=== PATIENT | female | born 1990 | race Two or more races ===

== ENCOUNTER 2023-12-31 19:14 | Emergency (ER) | payer BC ==
[~2023-12-31] VITALS: Ht 167.6 cm; Wt 85.9 kg
[2023-12-31 19:39] LABS: Urine Bacteria NONE SEEN /hpf (None Seen); Urine Blood TRACE /uL (Negative); Urine Clarity Clear (Clear); Urine Color Colorless (Yellow); Urine Protein, UAD Negative (Negative); Urine Specific Gravity 1.014 (1.001-1.035); Urine Urobilinogen Normal (Negative); Urine WBC 3 /hpf (0 - 5); Urine pH 7.5 (5.0-8.0)
[2023-12-31 20:00] LABS: Basophils # (auto) 0 10 ^3/uL (0-0.2); Basophils % (auto) 0.3 % (0.0-2.0); Eosinophils # (auto) 0.1 10 ^3/uL (0-0.8); Eosinophils % (auto) 0.5 % (0.0-7.0); Hematocrit 39.5 % (36.0-46.0); Hemoglobin 13.2 g/dL (12.2-16.2); Lymphocytes # (auto) 2.2 10 ^3/uL (0.4-5.4); Lymphocytes % (auto) 13.7 % (10.0-50.0); Mean Corpuscular Hemoglobin 30.3 pg (28.0-32.0); Mean Corpuscular Hgb Conc. 33.5 g/dL (32.0-36.0); Mean Corpuscular Volume 90.5 fL (80.0-100.0); Monocytes % (auto) 6.2 % (0.0-12.0); Neutrophils # (auto) 12.5 10 ^3/uL (1.6-8.6); Neutrophils % (auto) 79.3 % (37.0-80.0); Red Blood Cells 4.36 10^6/uL (4.0-5.20); Red Cell Distribution Width 12.8 % (11.8-14.3); White Blood Cell 15.8 10^3/uL (4.4-10.8)
[2023-12-31 20:09] LABS: Chloride 103 mmol/L (98-107); Potassium 3.7 mmol/L (3.5-5.1); Sodium 136 mmol/L (136-145)
[2023-12-31 20:10] LABS: Anion Gap 7 (5-15); Carbon Dioxide 26 mmol/L (20-30)
[2023-12-31 20:11] LABS: Calcium 9.1 mg/dL (8.7-10.4)
[2023-12-31 20:16] LABS: BUN/Creatinine Ratio 13.6 (10.0-20.0); Blood Urea Nitrogen 8 mg/dL (9-23); Glucose 91 mg/dL (74-106)
[2023-12-31] MEDS ORDERED: IOHEXOL 300 MG/ML 100ML BOTTLE IJ ONE (20:56)
[2023-12-31] MEDS: KETOROLAC TROMETH 30 MG/ML 1ML VIAL IV ONE (21:57)
[2023-12-31] MEDS: ONDANSETRON HCL 4 MG/2 ML VIAL IV ONE (21:57)
[2023-12-31] MEDS: SODIUM CHLORIDE 0.9% 1,000 ML IVB ONE (22:25)
[2024-01-01] MEDS ORDERED: ACET-6 PO (04:31)
[2024-01-01] MEDS ORDERED: CEPH250C PO (04:31)
[2024-01-01] MEDS ORDERED: NAPR1TAB24 PO (04:31)
[2024-01-01 04:52] VITALS: BP 99/69; PULSE 74; RESP 18; TEMP 97.8; O2SAT 97
[2024-01-01] MEDS: CEPHALEXIN 250 MG CAP PO ONE (04:55)
== END 2024-01-01 04:54 | disposition home or self-care (01) ==
LOC: ER 19:14
DX: N83.201 Unspecified ovarian cyst, right side (principal); N39.0 Urinary tract infection, site not specified; Z79.899 Other long term (current) drug therapy
CPT/HCPCS: 36415; 74177; 76830; 76856; 80048; 81001; 81025; 85025; 96361; 96374; 96375; 99285; J1885; J2405; J7030; Q9967

== ENCOUNTER → 2024-03-30 | Outpatient (CLI) | payer BC ==
[~2024-03-30] MED LIST: ACET-6 PO; CEPH250C PO; NAPR1TAB24 PO
[2024-03-30 08:59] LABS: Urine Bacteria None Seen /hpf (None Seen)
[2024-03-30 09:11] LABS: Basophils # (auto) 0 10 ^3/uL (0-0.2); Basophils % (auto) 0.6 % (0.0-2.0); Eosinophils # (auto) 0.1 10 ^3/uL (0-0.8); Eosinophils % (auto) 1.1 % (0.0-7.0); Hematocrit 41.8 % (36.0-46.0); Hemoglobin 13.8 g/dL (12.2-16.2); Lymphocytes # (auto) 2.3 10 ^3/uL (0.4-5.4); Lymphocytes % (auto) 31.2 % (10.0-50.0); Monocytes # (auto) 0.5 10 ^3/uL (0-1.3); Monocytes % (auto) 6.8 % (0.0-12.0); Neutrophils # (auto) 4.5 10 ^3/uL (1.6-8.6); Neutrophils % (auto) 60.3 % (37.0-80.0); Red Cell Distribution Width 13.6 % (11.8-14.3); White Blood Cell 7.5 10^3/uL (4.4-10.8)
[2024-03-30 09:33] LABS: Urine Blood Negative /uL (Negative); Urine Clarity Turbid (Clear); Urine Color Yellow (Yellow); Urine Protein, UAD TRACE (Negative); Urine Specific Gravity 1.025 (1.001-1.035); Urine Urobilinogen 2 mg/dL (Negative); Urine WBC 5 /hpf (0 - 5); Urine pH 7.5 (5.0-9.0)
[2024-03-30 09:45] LABS: Alanine Aminotransferase 15 U/L (7-40); Alkaline Phosphatase 64 U/L (46-116); Anion Gap 4 (5-15); BUN/Creatinine Ratio 14.5 (10.0-20.0); Blood Urea Nitrogen 9 mg/dL (9-23); Calcium 9.1 mg/dL (8.5-10.1); Carbon Dioxide 27 mmol/L (20-30); Chloride 106 mmol/L (98-107); Glucose 90 mg/dL (74-106); Potassium 4.1 mmol/L (3.5-5.1); Sodium 137 mmol/L (136-145); Triglycerides 116 mg/dL (< 150)
[2024-03-30 09:46] LABS: LDL Cholesterol 121 mg/dL (< 100)
[2024-03-30 09:47] LABS: Albumin 4.4 g/dL (3.2-4.8); Aspartate Aminotransferase 12 U/L (13-40); Cholesterol 181 mg/dL (< 200); HDL Cholesterol 43 mg/dL (40-59)
[2024-03-30 09:48] LABS: Bilirubin, Total 0.5 mg/dL (0.2-1.0); Total Protein 7.1 g/dL (5.7-8.2)
[2024-03-30 10:19] LABS: Thyroid Stimulating Hormone 1.23 uIU/mL (0.358-3.74)
[2024-03-30 10:26] LABS: Beta HCG, Quantitative 23407.9 mIU/mL (1.5-4.2)
[2024-04-01 13:06] LABS: RPR Non Reactive (Non Reactive)
[2024-04-02 10:00] LABS: Hepatitis B Core Total AB Negative (Negative)
[2024-04-02 13:38] LABS: Hepatitis A Total Antibody Negative (Negative); Hepatitis B Surface Antibody Negative (Negative); Hepatitis B Surface Antigen Negative (Negative); Hepatitis C Antibody Negative (Negative)
== END | disposition home or self-care (01) ==
LOC: LAB 08:44
PROVIDERS: ATTEND Student in an Organized Health Care Education/Training Program
DX: Z32.01 Encounter for pregnancy test, result positive (principal); E55.9 Vitamin D deficiency, unspecified
CPT/HCPCS: 36415; 80053; 80061; 81001; 81025; 82306; 83036; 84443; 84702; 85025; 86592; 86703; 86704; 86706; 86708; 86803; 87340

== ENCOUNTER → 2024-05-02 | Outpatient (CLI) | payer BC ==
[2024-05-02 14:17] LABS: Basophils # (auto) 0.1 10 ^3/uL (0-0.2); Basophils % (auto) 0.5 % (0.0-2.0); Eosinophils # (auto) 0.1 10 ^3/uL (0-0.8); Eosinophils % (auto) 1.2 % (0.0-7.0); Hematocrit 39.9 % (36.0-46.0); Hemoglobin 13.7 g/dL (12.2-16.2); Lymphocytes # (auto) 2.3 10 ^3/uL (0.4-5.4); Lymphocytes % (auto) 23.2 % (10.0-50.0); Mean Corpuscular Hemoglobin 30.7 pg (28.0-32.0); Mean Corpuscular Hgb Conc. 34.3 g/dL (32.0-36.0); Mean Corpuscular Volume 89.6 fL (80.0-100.0); Monocytes # (auto) 0.7 10 ^3/uL (0-1.3); Monocytes % (auto) 6.9 % (0.0-12.0); Neutrophils # (auto) 6.9 10 ^3/uL (1.6-8.6); Neutrophils % (auto) 68.2 % (37.0-80.0); Red Blood Cells 4.46 10^6/uL (4.0-5.20); Red Cell Distribution Width 13.8 % (11.8-14.3); White Blood Cell 10.1 10^3/uL (4.4-10.8)
[2024-05-02 14:27] LABS: Amphetamine Screen, Urine Neg (NEGATIVE); Barbiturate Scree,Urine Neg (NEGATIVE); Benzodiazephine Screen, Urine Neg (NEGATIVE); Cocaine Screen, Urine Neg (NEGATIVE); Opiate Scree,Urine Neg (NEGATIVE); Phencyclidine Screen, Urine Neg (NEGATIVE)
[2024-05-02 14:28] LABS: Cannabinoid Screen, Urine Neg (NEGATIVE)
[2024-05-03 08:06] LABS: RPR Non Reactive (Non Reactive)
[2024-05-03 19:06] LABS: Chlamydia Trachomatis, NAA Negative (Negative); Neisseria gonorrhoeae, NAA Negative (Negative)
[2024-05-04 21:06] LABS: QuantiFERON-TB Gold Plus Negative (Negative)
== END | disposition home or self-care (01) ==
LOC: LAB 13:40
PROVIDERS: ATTEND Obstetrics & Gynecology
DX: Z34.80 Encounter for supervision of other normal pregnancy, unspecified trimester (principal); Z3A.00 Weeks of gestation of pregnancy not specified
CPT/HCPCS: 36415; 80307; 83036; 84144; 84702; 85025; 86592; 86703; 86762; 86850; 86900; 86901; 87086; 87340

== ENCOUNTER → 2024-08-28 | Outpatient (CLI) | payer BC ==
[2024-08-28 08:26] LABS: Basophils # (auto) 0 10 ^3/uL (0-0.2); Basophils % (auto) 0.5 % (0.0-2.0); Eosinophils # (auto) 0.1 10 ^3/uL (0-0.8); Eosinophils % (auto) 1.2 % (0.0-7.0); Hematocrit 36.1 % (36.0-46.0); Hemoglobin 12.7 g/dL (12.2-16.2); Lymphocytes # (auto) 1.4 10 ^3/uL (0.4-5.4); Lymphocytes % (auto) 19.2 % (10.0-50.0); Mean Corpuscular Hemoglobin 31.8 pg (28.0-32.0); Mean Corpuscular Hgb Conc. 35.1 g/dL (32.0-36.0); Mean Corpuscular Volume 90.7 fL (80.0-100.0); Monocytes # (auto) 0.5 10 ^3/uL (0-1.3); Monocytes % (auto) 7.1 % (0.0-12.0); Neutrophils # (auto) 5.1 10 ^3/uL (1.6-8.6); Nucleated Red Blood Cells % 0.1 %; Platelet Count (auto) 254 10^3/uL (140-450); Red Blood Cells 3.98 10^6/uL (4.0-5.20); Red Cell Distribution Width 13.5 % (11.8-14.3); White Blood Cell 7.2 10^3/uL (4.4-10.8)
== END | disposition home or self-care (01) ==
LOC: LAB 08:02
PROVIDERS: ATTEND Obstetrics & Gynecology
DX: Z34.80 Encounter for supervision of other normal pregnancy, unspecified trimester (principal)
CPT/HCPCS: 36415; 82951; 83036; 85025

== ENCOUNTER → 2024-10-17 | Outpatient (CLI) | payer BC ==
[2024-10-17 11:59] LABS: Basophils # (auto) 0 10 ^3/uL (0-0.2); Basophils % (auto) 0.4 % (0.0-2.0); Eosinophils # (auto) 0.1 10 ^3/uL (0-0.8); Eosinophils % (auto) 1.7 % (0.0-7.0); Hematocrit 34.8 % (36.0-46.0); Hemoglobin 11.7 g/dL (12.2-16.2); Lymphocytes # (auto) 1.7 10 ^3/uL (0.4-5.4); Lymphocytes % (auto) 18.9 % (10.0-50.0); Mean Corpuscular Hemoglobin 29.1 pg (28.0-32.0); Mean Corpuscular Hgb Conc. 33.7 g/dL (32.0-36.0); Mean Corpuscular Volume 86.3 fL (80.0-100.0); Monocytes # (auto) 0.8 10 ^3/uL (0-1.3); Monocytes % (auto) 8.7 % (0.0-12.0); Neutrophils # (auto) 6.3 10 ^3/uL (1.6-8.6); Neutrophils % (auto) 70.3 % (37.0-80.0); Platelet Count (auto) 276 10^3/uL (140-450); Red Blood Cells 4.03 10^6/uL (4.0-5.20); Red Cell Distribution Width 14.1 % (11.8-14.3); White Blood Cell 8.9 10^3/uL (4.4-10.8)
[2024-10-18 08:06] LABS: RPR Non Reactive (Non Reactive)
[2024-10-18 18:06] LABS: Chlamydia Trachomatis, NAA Negative (Negative); Neisseria gonorrhoeae, NAA Negative (Negative)
== END | disposition home or self-care (01) ==
LOC: LAB 11:26
PROVIDERS: ATTEND Obstetrics & Gynecology
DX: Z34.80 Encounter for supervision of other normal pregnancy, unspecified trimester (principal)
CPT/HCPCS: 36415; 85025; 86592

== ENCOUNTER 2024-11-17 09:00 | Observation (INO) | payer BC, MEDICAID ==
[~2024-11-17] VITALS: Ht 167.6 cm; Wt 98.9 kg
[2024-11-17] MEDS ORDERED: LIDOCAINE 2%HCL (LOCAL ANESTH.) INJ 20ML MDV IJ PRN (09:15)
[2024-11-17] MEDS ORDERED: BUTORPHANOL TARTRATE 2 MG/1 ML VIAL IV PRN ×2 (09:15)
[2024-11-17 10:01] LABS: Basophils # (auto) 0 10 ^3/uL (0-0.2); Basophils % (auto) 0.3 % (0.0-2.0); Eosinophils # (auto) 0.1 10 ^3/uL (0-0.8); Hematocrit 37.2 % (36.0-46.0); Hemoglobin 12.5 g/dL (12.2-16.2); Lymphocytes # (auto) 1.5 10 ^3/uL (0.4-5.4); Lymphocytes % (auto) 20.1 % (10.0-50.0); Mean Corpuscular Hemoglobin 28.8 pg (28.0-32.0); Mean Corpuscular Hgb Conc. 33.5 g/dL (32.0-36.0); Mean Corpuscular Volume 85.7 fL (80.0-100.0); Monocytes # (auto) 0.5 10 ^3/uL (0-1.3); Neutrophils # (auto) 5.3 10 ^3/uL (1.6-8.6); Neutrophils % (auto) 71.6 % (37.0-80.0); Platelet Count (auto) 246 10^3/uL (140-450); Red Blood Cells 4.34 10^6/uL (4.0-5.20); Red Cell Distribution Width 15.4 % (11.8-14.3); White Blood Cell 7.4 10^3/uL (4.4-10.8)
[2024-11-17 10:11] LABS: Urine Bacteria None Seen /hpf (None Seen)
[2024-11-17 10:21] LABS: INR 0.99 (0.9-1.15); Partial Thromboplastin Time 26.7 SEC (24.5-34.5); Prothrombin Time 10.5 sec (9.3-11.8)
[2024-11-17] MEDS: ceFAZolin 1GM/50ML 50 ML IV SCH (10:23)
[2024-11-17 10:31] LABS: Alanine Aminotransferase 12 U/L (7-40); Anion Gap 9 (5-15); Aspartate Aminotransferase 13 U/L (13-40); BUN/Creatinine Ratio 10.4 (10.0-20.0); Calcium 9.1 mg/dL (8.7-10.4); Carbon Dioxide 21 mmol/L (20-31); Chloride 106 mmol/L (98-107); Glucose 81 mg/dL (74-106); Potassium 3.9 mmol/L (3.5-5.1)
[2024-11-17] MEDS: miSOPROStol 50 MCG per PRE-CUT 1/2 TAB PO PRN (10:31)
[2024-11-17 10:32] LABS: Bilirubin, Total 0.4 mg/dL (0.2-1.0)
[2024-11-17] MEDS: PHISODERM TOP SOLN 240ML BTL TOP PRN (10:45)
[2024-11-17] MEDS: DERMOPLAST 60ML BOTTLE TOP PRN (10:45)
[2024-11-17] MEDS: WITCH HAZEL-GLYCERIN PAD TOP PRN (10:45)
[2024-11-17 10:55] LABS: Urine Blood Negative /uL (Negative); Urine Clarity Clear (Clear); Urine Color Light-Yellow (Yellow); Urine Protein, UAD Negative (Negative); Urine Squamous Epithelial Cell FEW /hpf (<5); Urine Urobilinogen Normal (Negative); Urine WBC 12 /hpf (0 - 5); Urine pH 7.5 (5.0-9.0)
[2024-11-17 10:58] LABS: Alkaline Phosphatase 231 U/L (46-116); Blood Urea Nitrogen 5 mg/dL (9-23); Sodium 136 mmol/L (136-145)
[2024-11-17 10:59] LABS: Amphetamine Screen, Urine Neg (NEGATIVE); Barbiturate Scree,Urine Neg (NEGATIVE); Benzodiazephine Screen, Urine Neg (NEGATIVE); Cannabinoid Screen, Urine Neg (NEGATIVE); Cocaine Screen, Urine Neg (NEGATIVE); Opiate Scree,Urine Neg (NEGATIVE); Phencyclidine Screen, Urine Neg (NEGATIVE)
[2024-11-17] MEDS: LACTATED RINGER'S 1,000 ML IV SCH (13:26)
--- NOTE | 2024-11-17 13:33 | DVHHP ---
ADMIT DATE: 11/17/2024 CHIEF COMPLAINT: Rupture of membrane. HISTORY OF PRESENT ILLNESS: The patient is a 34-year-old 4, para 3 with EDC 11/21. Estimated gestational age of 39+ weeks, admitted for spontaneous rupture of membrane, clear fluid. The patient has no vaginal bleeding. PAST MEDICAL HISTORY: None. PAST SURGICAL HISTORY: None. SOCIAL HISTORY: None. FAMILY HISTORY: None. OBSTETRIC AND GYNECOLOGIC HISTORY: Three normal vaginal deliveries. GBS negative. REVIEW OF SYSTEMS: Consistent with HPI. PHYSICAL EXAMINATION: VITAL SIGNS: Stable, afebrile. HEENT: Within normal limits. CARDIOVASCULAR: Regular rate and rhythm. LUNGS: Clear to auscultation. BREASTS: Symmetrical. No masses. ABDOMEN: Gravid. Positive heart. PELVIC: 1 cm, 50%, -3. EXTREMITIES: No clubbing, cyanosis or edema. IMPRESSION: * Intrauterine at 39+ weeks with spontaneous rupture of membrane. * Advanced maternal age. PLAN: Augmentation of labor, antibiotic. Expectant vaginal delivery. Informed consent obtained. DO NICKO Dawson/ROSENDO TID: [id number] RECEIPT: [id number]
[2024-11-17] MEDS ORDERED: METHYLERGONOVINE MALEATE 0.2 MG/ML AMP IM ONE (16:50)
[2024-11-17] MEDS: LACT. RINGERS/OXYTOCIN 20UNITS 500 ML IV ONE ×2 (17:01→17:16)
[2024-11-17] MEDS: METHYLERGONOVINE MALEATE 0.2 MG/ML AMP IM ONE (17:25)
--- NOTE | 2024-11-17 17:25 | LDN2 ---
Labor and Delivery Note Date 11/17/24 Age 34 4 Para 4 EDC 1-8 EGA 39WKS Diagnosis LABOR,SROM,AMA Vaginal Delivery: VTX Vacuum Assisted: No Placenta: Spontaneous Sex: Female Apgars 8-9 Nuchal Cord Transected: No Amniotic Fluid: Clear Anesthesia NA Episiotomy: No Extension: Yes (1ST DEG PERINEAL LAC) Repaired with 2-0 CHROMIC EBL 300ML Labs Laboratory Tests 11/17/24 09:38: Hepatitis B Surface Antigen Negative, HIV (1&2) Antibody Negative 05/02/24 13:50: Rubella Antibody Positive Blood Bank 11/17/24 09:38: Blood Type O POSITIVE Complications NONE Conditions STABLE Comments/Significant Med Anh SPEC EXAM NO CXAL LAC INES ALBARRAN DO Nov 17, 2024 17:25
[2024-11-17] MEDS ORDERED: ACETAMINOPHEN 325 MG TAB PO PRN (19:30)
[2024-11-17] MEDS: IBUPROFEN 600 MG TAB PO PRN (20:31)
[2024-11-17 22:34] VITALS: BP 111/73; PULSE 84; RESP 19; TEMP 98.5; O2SAT 97
[2024-11-18 03:00] VITALS: BP 94/53; PULSE 78; RESP 16; TEMP 98.1; O2SAT 96
--- NOTE | 2024-11-18 04:05 | DVHPN2 ---
Progress Note Date Seen: Nov 18, 2024 Subjective S: Lochia minimal, Tolerating regular diet well. Ambulating and voiding well w/o feeling lightheaded or dizzy. Passing flatus but no BM yet. Breast feeding. Contraceptive plan: Male Condoms pending vasectomy Desires and requests to be discharged home today vital signs Vital Sign Date Time Temp Pulse Resp B/P (MAP) Pulse Ox O2 Delivery O2 Flow Rate FiO2 11/17/24 22:34 98.5 84 19 111/73 (86) 97 98.5 11/17/24 20:00 Room Air Total Intake and Output 11/17/24 11/17/24 11/18/24 15:00 23:00 07:00 Output Total 700 ml 400 ml Balance -700 ml -400 ml medications Current Medications Medications Dose Ordered Sig/Ra Route Start Time Stop Time Status Last Admin Dose Admin Lactated Ringer's 1,000 ml @ 125 mls/hr Q8H IV 11/17/24 09:15 11/17/24 13:26 125 MLS/HR Cefazolin Sodium 50 ml @ 100 mls/hr Q8HR IV 11/17/24 14:00 11/18/24 02:27 100 MLS/HR Witch Melissa 1 pad PRN PRN TOP 11/17/24 09:15 11/17/24 10:45 1 PAD Sodium Lauryl Sulfate 240 ml PRN PRN TOP 11/17/24 09:15 11/17/24 10:45 240 ML Benzocaine 1 applic PRN PRN TOP 11/17/24 09:15 11/17/24 10:45 1 APPLIC Butorphanol Tartrate 1 mg Q4HPRN PRN IV 11/17/24 09:15 Cancel Butorphanol Tartrate 2 mg Q4HPRN PRN IV 11/17/24 09:15 Cancel Lidocaine HCl 20 ml ONCE PRN IJ 11/17/24 09:15 Cancel Ibuprofen 600 mg Q6HP PRN PO 11/17/24 19:30 11/17/24 20:31 600 MG Acetaminophen 650 mg Q4HP PRN PO 11/17/24 19:30 laboratory and microbiology Laboratory Tests 11/17/24 09:38 Test 11/17/24 09:38 Range/Units Serum Glucose 81 74-106 mg/dL Objective O: A&O x3 NAD. Afebrile, VSS Chest: heart and lung sounds normal. Breasts: Nipples intact w/o cracks or soreness Abdomen: normal BS, soft, non-tender, no rebound or guarding, fundus firm @ U- 1, Perineum:- no edema, or erythema, laceration site with sutures intact, edges in good approximation. Extremities: no edema or tenderness Lochia - minimal Assessment/Plan 34yo now ppd#1_ s/p doing well. Blood Type: O Rh: Positive Breast feeding Rubella: Immune Pain control with oral medications Bowel regimen: Increase fluid intake and fiber in diet, Laxative PRN Discharge plan: May discharge home later today if condition remains stable Plan discussed with: Patient TENZIN LE CNM Nov 18, 2024 04:05
--- NOTE | 2024-11-18 04:11 | DVHDS2 ---
Obstetrics Discharge Summary Obstetrics Discharge Summary Date of Admission: Nov 17, 2024 Date of Discharge: Nov 18, 2024 Reason For Admission: PROM Intrapartum Procedures: Spontaneous vaginal deliv Procedures: None, Hct/date: (37.2% on 11/17/24), Hgb/date: (12.5g/dL on 11/17/24) Operative Complicat: None Discharge Diagnosis: Term -Delivered Discharge Information: Activity (Unrestricted. Advance as tolerated. No heavy lifting, pushing or straining. Pelvic rest x 6weeks), Diet (Routine regular diet rich in fiber, protein, iron and vitamin C with adequate fluid intake.), Medications (Ibuprofen 600mg every 6 hours as needed for pain. Continue Vitamin and iron), Instructions ( self care instructions given. emergency signs and symptoms including pre-eclampsia precautions and signs of PPD reviewed with patient. Follow up with OB Provider in 1 week), Discharge to (Home) TENZIN LE CNM Nov 18, 2024 04:11
[2024-11-18 06:53] VITALS: BP 108/66; PULSE 71; RESP 18; TEMP 98; O2SAT 97
[2024-11-18 06:54] VITALS: PULSE 71; RESP 18; O2SAT 97
--- NOTE | 2024-11-18 09:15 | DVHINCON2 ---
Date of Service if different f: Nov 18, 2024 Consultation ([facility]) Progress: Better Labs Laboratory Tests Test 11/17/24 09:00 11/17/24 09:38 Urine Color Light-yellow (Yellow) Urine Clarity Clear (Clear) Urine pH 7.5 (5.0-9.0) Urine Specific [place] 1.010 (1.001-1.035) Urine Protein Negative (Negative) Urine Ketones Negative (Negative) Urine Blood Negative /uL (Negative) Urine Nitrite Negative (Negative) Urine Bilirubin Negative (Negative) Urine Urobilinogen Normal mg/dL (Negative) Urine Leukocyte Esterase 1+ /uL (Negative) Urine RBC 2 /hpf (0 - 4) Urine WBC 12 /hpf (0 - 5) Urine Squamous Epithelial Cells Few /hpf (<5) Urine Bacteria None seen /hpf (None Seen) Urine Glucose Normal mg/dL (Normal) Urine Opiates Screen Neg (NEGATIVE) Urine Fentanyl Screen Neg (NEGATIVE) Urine Barbiturates Screen Neg (NEGATIVE) Urine Phencyclidine Screen Neg (NEGATIVE) Urine Amphetamines Screen Neg (NEGATIVE) Urine Benzodiazepines Screen Neg (NEGATIVE) Urine Cocaine Screen Neg (NEGATIVE) Urine Cannabinoids Screen Neg (NEGATIVE) White Blood Count 7.4 10^3/uL (4.4-10.8) Red Blood Count 4.34 10^6/uL (4.0-5.20) Hemoglobin 12.5 g/dL (12.2-16.2) Hematocrit 37.2 % (36.0-46.0) Mean Corpuscular Volume 85.7 fL (80.0-100.0) Mean Corpuscular Hemoglobin 28.8 pg (28.0-32.0) Mean Corpuscular Hemoglobin Concent 33.5 g/dL (32.0-36.0) Red Cell Distribution Width 15.4 % (11.8-14.3) Platelet Count 246 10^3/uL (140-450) Mean Platelet Volume 7.6 fL (6.9-10.8) Neutrophils (%) (Auto) 71.6 % (37.0-80.0) Lymphocytes (%) (Auto) 20.1 % (10.0-50.0) Monocytes (%) (Auto) 7.0 % (0.0-12.0) Eosinophils (%) (Auto) 1.0 % (0.0-7.0) Basophils (%) (Auto) 0.3 % (0.0-2.0) Neutrophils # (Auto) 5.3 10 ^3/uL (1.6-8.6) Lymphocytes # (Auto) 1.5 10 ^3/uL (0.4-5.4) Monocytes # (Auto) 0.5 10 ^3/uL (0-1.3) Eosinophils # (Auto) 0.1 10 ^3/uL (0-0.8) Basophils # (Auto) 0 10 ^3/uL (0-0.2) Nucleated Red Blood Cells 0.0 % Prothrombin Time 10.5 sec (9.3-11.8) Prothromb Time International Ratio 0.99 (0.9-1.15) Activated Partial Thromboplast Time 26.7 SEC (24.5-34.5) Sodium Level 136 mmol/L (136-145) Potassium Level 3.9 mmol/L (3.5-5.1) Chloride Level 106 mmol/L (98-107) Carbon Dioxide Level 21 mmol/L (20-31) Anion Gap 9 (5-15) Blood Urea Nitrogen 5 mg/dL (9-23) Creatinine 0.48 mg/dL (0.550-1.02) Glomerular Filtration Rate Calc 127 mL/min (>90) BUN/Creatinine Ratio 10.4 (10.0-20.0) Serum Glucose 81 mg/dL (74-106) Calcium Level 9.1 mg/dL (8.7-10.4) Total Bilirubin 0.4 mg/dL (0.2-1.0) Aspartate Amino Transf (AST/SGOT) 13 U/L (13-40) Alanine Aminotransferase (ALT/SGPT) 12 U/L (7-40) Alkaline Phosphatase 231 U/L (46-116) Total Protein 7.0 g/dL (5.7-8.2) Albumin 4.0 g/dL (3.2-4.8) Hepatitis B Surface Antigen Negative (Negative) Hepatitis C Antibody Negative (Negative) HIV (1&2) Antibody Negative (Negative) Appetite: Good Appearance: Stated age Psychomotor activity: WNL Behavioral: Cooperative Eye contact: Appropriate Speech: WNL Affect: Appropriate Mood: Euthymic Thought processes: Linear/Goal-directed Thought content: WNL Suicidal ideations: Absent Homicidal ideations: Absent Orientation: Person, Place, Time, Situation Memory intact: Recent Intellect: Average Abstractability: WNL Concentration: Adequate Attention: Adequate Judgement: WNL Insight: Good Vitals Vital Signs Date Time Temp Pulse Resp B/P (MAP) Pulse Ox O2 Delivery O2 Flow Rate FiO2 11/18/24 06:54 71 18 97 Room Air 11/18/24 06:53 98.0 108/66 (80) 98.0 Current medications Current Medications Medications Dose Ordered Sig/Ra Route Start Time Stop Time Status Last Admin Dose Admin Lactated Ringer's 1,000 ml @ 125 mls/hr Q8H IV 11/17/24 09:15 11/17/24 13:26 125 MLS/HR Witch Melissa 1 pad PRN PRN TOP 11/17/24 09:15 11/17/24 10:45 1 PAD Sodium Lauryl Sulfate 240 ml PRN PRN TOP 11/17/24 09:15 11/17/24 10:45 240 ML Benzocaine 1 applic PRN PRN TOP 11/17/24 09:15 11/17/24 10:45 1 APPLIC Butorphanol Tartrate 1 mg Q4HPRN PRN IV 11/17/24 09:15 Cancel Butorphanol Tartrate 2 mg Q4HPRN PRN IV 11/17/24 09:15 Cancel Lidocaine HCl 20 ml ONCE PRN IJ 11/17/24 09:15 Cancel Ibuprofen 600 mg Q6HP PRN PO 11/17/24 19:30 11/17/24 20:31 600 MG Acetaminophen 650 mg Q4HP PRN PO 11/17/24 19:30 Treatment plan discussed: With staff Medication adjusted: No Labs ordered: No Psychotherapy provided: No Type: Voluntary Diagnosis: No applicable psychiatric diagnosis. Plan : The pt is not complaining of depression, denies any and all symptoms of depression. Does have some sadness and stress relating to the new addition to the family, child therapist concerns, change in work, adjustments etc. But pt does not feels this is depressing her. Pt is logical, future oriented, denies SI, HI, AVH and is happy about the of the baby. Please provide pt with resources she can access in the community in case her mood worsens. History of Present Illness Reason for Consult : Pt scored a 12 on the post depression scale. HPI : Pt says that 2 weeks ago she felt crying, probably because she was getting closer to delivery. Pt says that she feels a little sad because her mother 3 years ago. She feels that her mother would have been very happy. Mother was alive for the st 2 children, but for the next 2 including this one she has not been alive. Pt feels that since her sister got and moved out of their home and has her own life far away, the pt feels that she will have less help raising her kids. The sister used to be a great help when she was single and living with the pt and helping raise the children. Pt remembers that with previous baby's the sadness that happens after (which is usual), went away rather quickly. It was about 2 weeks that the pt felt back to normal for mood. Pt denies any crying spells related to the of the baby, only when she was talking about her mother and missing her did she feel teary eyed. Pt says that she has given to a normal baby. Pt denies any sad mood or depression currently, denies any desire to harm self or others, denies AVH. Past Psychiatric History : Denies all past psychiatric history of diagnoses or treatment with psychiatrist, therapist or other professionals and no psych meds given by non-psych providers either. Pt denies all substance use. Past Medical History : Denies. Social History : Lives with . No safety concerns at home. Harmonious marriage. Pt is a stay at home mom. Pt had disability when she was , there was a plan to return to work but now that there is less support for raising the baby this may not be possible any longer. Pt feels a little sad about the prospect of not working and feels a little stressed about the loss of income. 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 Assessment/Diagnosis/Plan Reviewed: Care Plan, Labs JORGE SAUNDERS MD Nov 18, 2024 09:15
[2024-11-18 11:00] VITALS: BP 115/79; PULSE 78; RESP 18; TEMP 98.2; O2SAT 97
[2024-11-18] MEDS ORDERED: PREN1TAB71 OR (13:42)
[2024-11-18 14:46] VITALS: BP 115/79; PULSE 65; RESP 18; TEMP 97.8; O2SAT 97
[2024-11-18 19:24] VITALS: BP 109/71; PULSE 88; RESP 20; TEMP 97.7; O2SAT 97
[2024-11-20 01:06] LABS: Rubella Antibodies, IgG 2.66 index (Immune >0.99)
[2024-11-20 05:07] LABS: RPR Non Reactive (Non Reactive)
[2024-11-20 10:06] LABS: Treponema Pallidum Ab LC Non Reactive (Non Reactive)
== END 2024-11-18 21:12 | disposition home or self-care (01) ==
LOC: LDRP 09:00
PROVIDERS: ADMIT Obstetrics & Gynecology; ATTEND Obstetrics & Gynecology
DX: O80 Encounter for full-term uncomplicated delivery (principal); Z3A.39 39 weeks gestation of pregnancy; Z79.899 Other long term (current) drug therapy; Z98.890 Other specified postprocedural states; Z37.0 Single live birth; Z86.2 Personal history of diseases of the blood and blood-forming organs and certain disorders involving the immune mechanism
CPT/HCPCS: 36415; 80053; 80307; 81001; 81002; 85025; 85610; 85730; 86592; 86703; 86762; 86780; 86803; 86850; 86900; 86901; 87340; 88307; 94760; 96365; 96366; 96368; 96372; G0378; J0690; J2210; J2590; 59409; 96360; 96361; 96375